=== PATIENT | male | born 1965 | race Caucasian/White ===

== ENCOUNTER 2024-09-12 20:32 | Emergency (ER) | payer OTHER, MEDICAID, SELFPAY ==
[2024-09-12 20:57] VITALS: BP 190/111; PULSE 61; RESP 18; TEMP 36.4; O2SAT 99
--- NOTE | 2024-09-12 21:05 | DI.RAD.S_ITS ---
PROCEDURE: XR CHEST 1V INDICATIONS: altered mental status TECHNIQUE: One view of the chest was acquired. COMPARISON: None. FINDINGS: Surgical changes and devices: None. Lungs and pleura: Lungs are clear. No pleural effusions or pneumothorax. Mediastinum: Mediastinal contours appear normal. Heart size is normal. Bones and chest wall: No suspicious bony lesions. Overlying soft tissues appear unremarkable. IMPRESSION: No acute cardiopulmonary abnormality is seen. Dictated by: Carmine Torrez M.D. on 09/12/2024 at 22:01 Approved by: Carmine Torrez M.D. on 09/12/2024 at 22:02
--- NOTE | 2024-09-12 21:06 | DI.CT.S_ITS ---
PROCEDURE: CT CERVICAL SPINE WO CON INDICATIONS: unkown if injury or fall TECHNIQUE: Noncontrast 3 mm thick sections acquired from the skull base to the T4 level. Sagittal and coronal reformats were then constructed. For radiation dose reduction, the following was used: automated exposure control, adjustment of mA and/or kV according to patient size. COMPARISON: None. FINDINGS: Image quality: Excellent. Bones: No acute fractures or dislocations. Visualized superior ribs are intact. Mild erosive the normal cervical lordosis. There is fusion of the C4, C5, and CT 6 vertebral bodies. Multilevel disc space narrowing and degenerative endplate changes. Multilevel uncovertebral joint and facet hypertrophy. Soft tissues: Prevertebral soft tissues are normal in thickness. No paravertebral hematomas. No apical pneumothoraces. IMPRESSION: 1. No acute displaced fracture or traumatic subluxation. 2. Moderate to severe multilevel spondylosis. Approved by: Jose Elias Reese M.D. on 09/12/2024 at 22:14
--- NOTE | 2024-09-12 21:06 | DI.CT.S_ITS ---
PROCEDURE: CT HEAD/BRAIN WO CON INDICATIONS: headache TECHNIQUE: Noncontrast 4.5 mm thick angled axial sections acquired from the foramen magnum to the vertex, with coronal and sagittal reformats. For radiation dose reduction, the following was used: automated exposure control, adjustment of mA and/or kV according to patient size. COMPARISON: None. FINDINGS: Image quality: Diagnostic. CSF spaces: Basal cisterns are patent. No extra-axial fluid collections. The ventricles are symmetric in size and shape. Brain: No acute intracranial hemorrhage or mass effect. There is mild cerebral volume loss for age, with resultant ventricular and sulcal prominence. There are mild periventricular and deep white matter chronic small vessel ischemic changes. There is intracranial internal carotid artery atherosclerosis. Skull and face: Calvarium and visualized facial bones appear intact, without suspicious lesions. Sinuses: Visualized sinuses and mastoids are clear. IMPRESSION: No acute intracranial pathology. Approved by: Jose Elias Reese M.D. on 09/12/2024 at 22:11
--- NOTE | 2024-09-12 21:17 | EKG_ITS ---
[facility] [address] [place] [address] Test Date: 2024-09-12 Pat Name: Cristobal Neville Department: [facility] Room: Gender: Male Medical Billing Coordinator: DANIELA : 1965 Requested By: Order Number: [id number] Reading MD: Abdirashid Plunkett Measurements Intervals [place] Rate: 60 P: 39 VT: 144 QRS: 21 QRSD: 88 T: 42 QT: 426 QTc: 426 Interpretive Statements Normal sinus rhythm Minimal voltage criteria for LVH, may be normal variant ( Sokolow-Connolly ) Septal infarct , age undetermined Electronically Signed On 09-13-2024 8:32:58 PDT by Abdirashid Plunkett
[2024-09-12 21:32] LABS: Add Manual Diff / Slide Review NO; Basophils Absolute Auto 0 /uL (0-100); Basophils Percent Auto 0.6 % (0-2); Eosinophils Absolute Auto 100 /uL (0-450); Eosinophils Percent Auto 1.6 % (2-4); Hematocrit 40.5 % (41-53); Hemoglobin 13.6 g/dL (13.5-17.5); Lymphocytes Absolute Auto 2200 /uL (1100-4500); Lymphocytes Percent Auto 35.7 % (25-40); Mean Corpuscular HGB Conc 33.5 % (30-36); Mean Corpuscular Hemoglobin 29.5 PG (26-34); Mean Corpuscular Volume 88.3 fL (80-100); Monocytes Absolute Auto 900 /uL (0-900); Monocytes Percent Auto 14.7 % (3-14); Neutrophils Absolute Auto 3000 /uL (1500-7000); Neutrophils Percent Auto 47.4 % (50-75); Platelet Count 360 X10^3/uL (150-400); Red Blood Cell Count 4.59 X10^6/uL (4.5-5.9); Red Cell Distribution Width 14.7 % (11.6-14.8); White Blood Cell Count 6.3 X10^3/uL (4.5-11.0)
[2024-09-12 22:05] LABS: Alanine Aminotransferase 33 IU/L (<50); Albumin 4.3 g/dL (3.5-5.0); Albumin Globulin Ratio 1.2 (1.0-2.8); Alkaline Phosphatase 99 U/L (38-126); Aspartate Aminotransferase 47 IU/L (17-59); BUN Creatinine Ratio 16.4 (6-22); Bilirubin Total 0.3 mg/dL (0.2-1.3); Blood Urea Nitrogen 18 mg/dL (9-20); Calcium 9.5 mg/dL (8.4-10.2); Carbon Dioxide 30 mmol/L (22-32); Chloride 102 mmol/L (98-107); Creatine Kinase 114 U/L (55-170); Estimated Glomerular Filt Rate > 60 mL/min (>60); Ethanol (ETOH) < 10 mg/dL; Globulin 3.7 g/dL (1.7-4.1); Glucose 87 mg/dL (80-110); HEMOLYSIS < 15 (0-50); Potassium 3.6 mmol/L (3.4-5.1); Sodium 138 mmol/L (137-145)
[2024-09-12 22:16] LABS: Troponin I < 0.012 ng/mL (0.01-0.034)
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
[2024-09-12 23:43] LABS: Ammonia (NH3) 20 umol/L (9-30); Ethanol (ETOH) < 10 mg/dL
[2024-09-13] VITALS (25 sets, daily range): BP systolic 130–184; BP diastolic 64–99; PULSE 52–75; RESP 9–22; O2SAT 99–100
[2024-09-13] MEDS: AMLODIPINE 5 MG TABLET 2.5 MG PO (00:18)
--- NOTE | 2024-09-13 01:14 | PC.NURSE ---
Pt continues to lie back in [facility]. Eyes closed. Assume asleep. Pt appears in NAD.
[2024-09-13 03:37] LABS: UR Morphine/Opiate cutoff 300 Negative (Negative); Ur Creatinine Normal (Normal); Ur Specific Gravity Normal (Normal); Urine Amphetamines Positive (Negative); Urine Barbiturates Negative (Negative); Urine Benzodiazepines Negative (Negative); Urine Cocaine Negative (Negative); Urine MDMA Negative (Negative); Urine Methadone Negative (Negative); Urine Methamphetamines Positive (Negative); Urine Oxycodone Negative (Negative); Urine Phencyclidine Negative (Negative); Urine Tetrahydrocannabinol Negative (Negative); Urine Tricyclic Antidepressant Negative (Negative); Urine pH Normal (Normal)
--- NOTE | 2024-09-13 09:42 | PC.NURSE ---
Pt is disoriented to date and where he is living. Pt oriented to person, place. Pt follows commands and is steady on his feet. Changed his clothes and gave him paper scrubs as pants were soiled.
--- NOTE | 2024-09-13 13:35 | PC.NURSE ---
Patient ambulatory around ED department. Stable joseline, nurse standby. Patient eyes open to command. Alert to self, and situation. Per CUTTING TABLE OPERATOR FIRST and . [paitent to dc to waiting room and SW to assist with discharge location.
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
== END 2024-09-13 13:37 | disposition home or self-care (01) ==
PROVIDERS: Emergency Provider Emergency Medicine
DX: R41.0 Disorientation, unspecified (principal); R51.9 Headache, unspecified; F15.11 Other stimulant abuse, in remission
CPT/HCPCS: 36415; 70450; 71045; 72125; 80053; 80305; 80320; 81003; 82140; 82550; 84484; 85025; 93005; 99284